=== PATIENT | male | born 2000 | race Caucasian/White ===

== ENCOUNTER 2018-02-15 00:06 | Emergency (ER) | payer OTHER ==
[2018-02-15] MEDS ORDERED: Lidocaine 1% w/Epinephrine 1:100K 20 ML VIAL ONE (00:39)
[2018-02-15] MEDS ORDERED: Bacitracin Zinc 1 Packet ONE ×2 (03:21)
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
== END 2018-02-15 03:35 | disposition home or self-care (01) ==
LOC: SCSER 00:06
DX: S01.01XA Laceration without foreign body of scalp, initial encounter (principal); F10.129 Alcohol abuse with intoxication, unspecified; W25.XXXA Contact with sharp glass, initial encounter
CPT/HCPCS: 12001; 12052; 70450; 72125; 99406; J2001